=== PATIENT | male | born 2000 | race African-American/Black ===

== ENCOUNTER 2019-01-28 09:24 | Emergency (ER) | payer MEDICAID ==
[~2019-01-28] VITALS: Ht 165.1 cm; Wt 54.5 kg
[2019-01-28 10:30] VITALS: BP 112/62
[2019-01-28] MEDS ORDERED: IBUPROFEN 600MG TABLET PO ONE (11:30)
== END 2019-01-28 11:52 | disposition home or self-care (01) ==
LOC: ER 09:24
DX: H92.02 Otalgia, left ear (principal); F12.10 Cannabis abuse, uncomplicated
CPT/HCPCS: 99282